=== PATIENT | female | born 1960 | race Caucasian/White ===

== ENCOUNTER 2020-07-08 17:48 | Emergency (ER) | payer MEDICARE, MEDICAID ==
--- NOTE | 2020-07-08 18:06 | EDM.PDOC ---
ED HPI GENERAL MEDICAL PROBLEM - General Chief Complaint: Lower Extremity Injury/Pain Stated Complaint: fall Time Seen by Provider: 07/08/20 17:48 Source of Information: Reports: Patient History Limitations: Reports: No Limitations - History of Present Illness INITIAL COMMENTS - FREE TEXT/NARRATIVE: Patient comes into the emergency department via EMS with complaints of a fall. Patient was getting out of a parked vehicle and ended up mis-stepping and falling landing on her butt/left hip region. Patient is an [employer] and was recommended by staff that 9 1 be contacted and further evaluation be had. Patient states that she "feels all better ". Patient actively denies any pain or discomfort. Staff state that the patient did not hit her head or lose consciousness. Patient was up and ambulatory on her own prior to the ambulance arrival. Patient does not have any history of anticoagulant use. The staff state that she is able to stress her concerns and injuries/complaints when she has any. Currently the patient denies any chest pain, shortness of breath, dizziness, lightheadedness, pain, abdominal discomfort, genitourinary concerns, or peripheral edema. Patient is ambulatory in the emergency department and has no other concerns or complaints except to tell staff she "feels all better". Onset: Sudden Quality: Reports: Other Improves with: Reports: None Worsens with: Reports: None - Related Data Allergies Allergy/AdvReac Type Severity Reaction Status Date / Time No Known Allergies Allergy Verified 07/08/20 17:59 Home Meds: Home Meds Docusate Sodium [Colace] 200 mg PO BEDTIME PRN 07/08/20 [History] Enalapril Maleate 20 mg PO BID 07/08/20 [History] Multivit-Min/FA/Lycopen/Lutein [Certavite Sr with Lutein Tab] 1 each PO DAILY 07/08/20 [History] Potassium Chloride 10 meq PO BID 07/08/20 [History] Propranolol [Inderal] 20 mg PO TID 07/08/20 [History] amLODIPine [Norvasc] 5 mg PO DAILY 07/08/20 [History] Review of Systems - Review of Systems Review Of Systems: Comprehensive ROS is negative, except as noted in HPI. Constitutional: Reports: No Symptoms Eyes: Reports: No Symptoms Ears: Reports: No Symptoms Nose: Reports: No Symptoms Mouth/Throat: Reports: No Symptoms Respiratory: Reports: No Symptoms Cardiovascular: Reports: No Symptoms GI/Abdominal: Reports: No Symptoms Genitourinary: Reports: No Symptoms Musculoskeletal: Reports: No Symptoms Skin: Reports: No Symptoms Neurological: Reports: No Symptoms Psychiatric: Reports: No Symptoms ED EXAM, GENERAL - Physical Exam Exam: See Below Exam Limited By: No Limitations General Appearance: Alert, WD/WN, No Apparent Distress Eye Exam: Bilateral Eye: EOMI, PERRL Nose: Normal Inspection, Normal Mucosa, No Blood Throat/Mouth: Normal Inspection, Normal Lips, Normal Teeth, No Airway Compromise Head: Atraumatic, Normocephalic Neck: Normal Inspection, Supple, Non-Tender, Full Range of Motion Respiratory/Chest: No Respiratory Distress, Lungs Clear, Normal Breath Sounds, No Accessory Muscle Use, Chest Non-Tender Cardiovascular: Normal Peripheral Pulses, Regular Rate, Rhythm, No Edema GI/Abdominal: Normal Bowel Sounds, Soft, Non-Tender (Female) Exam: Deferred Rectal (Female) Exam: Deferred Back Exam: Normal Inspection, Full Range of Motion Extremities: Normal Inspection, Normal Range of Motion, Non-Tender, Normal Capillary Refill Neurological: Alert, Oriented, CN II-XII Intact, Normal Cognition, Normal Gait Psychiatric: Normal Affect, Normal Mood Skin Exam: Warm, Dry, Intact, Normal Color, No Rash Course - Vital Signs Last Recorded V/S: Last Vital Signs Temp 36.7 C 07/08/20 17:48 Pulse 70 07/08/20 17:48 Resp 18 07/08/20 17:48 BP 149/69 H 07/08/20 17:48 Pulse Ox 100 07/08/20 17:48 Departure - Departure Time of Disposition: 18:00 Disposition: Home, Self-Care 01 Condition: Good Clinical Impression: Fall Qualifiers: Encounter type: initial encounter Qualified Code(s): W19.XXXA - Unspecified fall, initial encounter - Discharge Information *PRESCRIPTION DRUG MONITORING PROGRAM REVIEWED*: Not Applicable *COPY OF PRESCRIPTION DRUG MONITORING REPORT IN PATIENT [place]UST[place]: Not Applicable Instructions: Fall Prevention in the Home, Adult, [id number] Additional Instructions: 1. Rest 2. Can use tylenol and ibuprofen as needed for pain and discomfort 3. Diet as tolerated 4. Activity as tolerated 5. Elevated the injured area above the level of the heart to decrease swelling and discomfort does arise 6. Use ice 3-4 times a day at 20-minute intervals to help with any swelling and discomfort if it does arise 7. Follow-up with your primary care provider symptoms continue or to progress 8. Follow with any questions or concerns Sepsis Event Note (ED) - Evaluation Sepsis Screening Result: No Definite Risk - Focused Exam Vital Signs: Vital Signs Temp Pulse Resp BP Pulse Ox 07/08/20 17:48 36.7 C 70 18 149/69 H 100 - Assessment/Plan Assessment:: 1. fall Plan: 1. No further imaging needed. Patient is ambulatory with out any pain or injuries noted. 2. Staff were educated of concerns to monitor if symptoms arise and when to return to the ER. 3. Patient and nursing staff was updated regarding the plan of care 4. Education provided the patient regarding activity, diet, rest, [id number] medication modalities, and follow-up care was provided 5. Patient and family are agreeable to the above plan of care 6. All questions and concerns were addressed with the patient and family prior to discharge
== END 2020-07-08 18:11 | disposition home or self-care (01) ==
LOC: VM.ED 17:48
DX: Z04.3 Encounter for examination and observation following other accident (principal)
CPT/HCPCS: 99283